=== PATIENT | male | born 1945 | race Caucasian/White ===

== ENCOUNTER → 2016-10-03 11:35 | Day surgery (SDC) | payer MEDICARE, BC ==
[~2016-10-03 11:35] MED LIST: Acetaminophen TAB* 325 MG PO PRN; Buffered Lidocaine 1% SYRIN* 3 ML/SYR SYRINGE INTRADERM ONE; Bupivacaine 0.25% EPI 200,000* 30 ML SDV ONE; DiMENhydriNATE IV* 50 MG/ML VIAL IV PUSH PRN; Famotidine IV* 10 MG/ML 2 ML (20 mg) ONE; HYDROcodone/ACETAMIN 5-325 MG* 1 TAB PO PRN; KETAMINE HCL* 50 MG/ML 10 ML VIAL ONE; Ketorolac INJ* 30 MG/ML 1 ML VIAL ONE; Lidocain 1% EPI 1:100,000 * 30 ML MDV ONE; Lidocaine 2% PF* 5 ML VIAL ONE; Midazolam* 1 MG/ML 2 ML VIAL (2 MG) ONE; PROCHLORPERAZINE INJ 5 MG/ML 2 ML VIAL IV PRN; Propofol* 10 MG/ML 20 ML BTL IV PUSH ONE; ceFAZolin 2 GM PREMIX(*) 2 GM/50 ML BAG IVPB ONE; diPHENhydraMINE IV* 50 MG/ML 1 ml VIAL (BENADRYL) ONE; fentaNYL* 50 MCG/ML 2 ML VIAL (100 MCG VIAL) ONE; fentaNYL* 50 MCG/ML 5 ML VIAL (250 MCG VIAL) ONE
[2016-10-03 16:54] VITALS: BP 126/85
== END | disposition home or self-care (01) ==
LOC: OR 11:35
PROVIDERS: ATTEND Plastic Surgery
DX: D17.0 Benign lipomatous neoplasm of skin and subcutaneous tissue of head, face and neck (principal); N40.0 Benign prostatic hyperplasia without lower urinary tract symptoms
CPT/HCPCS: 88304; J0690; J1200; J1885; J2250; J2704; J3010

== ENCOUNTER 2017-03-13 22:25 | Emergency (ER) | payer MEDICARE, BC ==
[2017-03-13 22:37] VITALS: BP 149/96
[2017-03-13 23:51] LABS: Hematocrit 41 % (42-52); Hemoglobin 14.1 g/dl (14.0-18.0); Mean Corpuscular HGB Conc 34 g/dl (31-36); Mean Corpuscular Hemoglobin 32 pg (27-31); Mean Corpuscular Volume 93 fL (80-94); Mean Platelet Volume 9 um3 (7.4-10.4); Red Blood Count 4.43 10^6/ul (4.0-5.4); Red Cell Distribution Width 14 % (10.5-15); White Blood Count 6.8 10^3/ul (3.5-10.8)
--- NOTE | 2017-03-13 23:55 | ED ---
Valencia Benedict Thomas, scribed for Nitin Bettencourt MD on 03/13/17 at 2336 . Skin Complaint - HPI Summary HPI Summary: The pt is a 71 y/o M with a Hx of MRSA presenting to the ED c/o cellulitis to his RLE that began a week ago. The pt also complains of pain associated with this cellulitis rated 2/10. The patient was seen at a hospital in [facility] two days ago, where he was prescribed Keflex. He presents to the ED because the cellulitis appears to be growing in size. He denies fever and chills. - History of Current Complaint Chief Complaint: EDRashSkinAbscess Time Seen by Provider: 03/13/17 23:23 Stated Complaint: RASH/BLISTERS/SWOLLEN RT LEG Hx Obtained From: Patient Onset/Duration: Started Weeks Ago - 1, Still Present, Worse Since - progressively Timing: Constant Current Severity: Mild Pain Intensity: 2 Pain Scale Used: 0-10 Numeric Skin Location: Leg - R Aggravating Symptom(s): Nothing Alleviating Symptom(s): Nothing Associated Signs & Symptoms: Negative Related History: Other: - Hx of MRSA - Allergy/Home Medications Allergies/Adverse Reactions: Allergies Allergy/AdvReac Type Severity Reaction Status Date / Time No Known Allergies Allergy Verified 03/13/17 22:33 PMH/Surg Hx/FS Hx/Imm Hx Previously Healthy: No History: Reports: Hx Kidney Stones, Other Problems/Disorders - ENLARGED PROSTATE Musculoskeletal History: Reports: Hx Arthritis - KNEES, SHOULDERS Sensory History: Reports: Hx Contacts or Glasses - GLASSES Opthamlomology History: Reports: Hx Contacts or Glasses - GLASSES - Surgical History Surgery Procedure, Year, and Place: APPENDECTOMY, 1958 - [place]. BONE FROM HIP PLACED IN WRIST , 1962 - [place]. INGUINAL HERNIA REPAIR, 1984 - [facility]. RIGHT CARPAL TUNNEL RELEASE, 2006 - [facility]. [facility] PROSTATE BIOPSY, 2011 - [facility]. RIGHT SHOULDER REPLACEMENT, MAY 2014 - [place] Hx Anesthesia Reactions: No Infectious Disease History: Yes Infectious Disease History: Denies: Traveled Outside the [place] in Last 30 Days - Family History Known Family History: Negative: Diabetes - Social History Alcohol Use: Rare Substance Use Type: Reports: None Smoking Status (MU): Never Smoked Tobacco Review of Systems Negative: Fever, Chills Positive: Other - POS: cellulitis to RLE, onset a week ago, Hx of MRSA All Other Systems Reviewed And Are Negative: Yes Physical Exam Triage Information Reviewed: Yes Vital Signs On Initial Exam: Initial Vitals Temp Pulse Resp BP Pulse Ox 99.3 F 59 16 149/96 98 03/13/17 22:35 03/13/17 22:35 03/13/17 22:35 03/13/17 22:35 03/13/17 22:35 Vital Signs Reviewed: Yes Appearance: Positive: Well-Appearing, No Pain Distress Skin: Positive: Warm, Other - 4x4cm area upper thigh with erythema, induratuion with few central blisters ENT: Positive: Hearing grossly normal Neck: Positive: Supple Respiratory/Lung Sounds: Positive: Breath Sounds Present Neurological: Positive: Alert, Oriented to Person Place, Time Psychiatric: Positive: Affect/Mood Appropriate Diagnostics - Vital Signs Vital Signs Temp Pulse Resp BP Pulse Ox 03/13/17 22:35 99.3 F 59 16 149/96 98 - Laboratory Result Diagrams: 03/13/17 23:45 03/13/17 23:45 Lab Statement: Any lab studies that have been ordered have been reviewed, and results considered in the medical decision making process. Course/Dx - Course Assessment/Plan: The pt is a 71 y/o M with a Hx of MRSA presenting to the ED c/ o cellulitis to his RLE that began a week ago. The pt also complains of pain associated with this cellulitis rated 2/10. The patient was seen at a hospital in [facility] two days ago, where he was prescribed Keflex. He presents to the ED because the cellulitis appears to be growing in size. He denies fever and chills. In the ED course the paitent was given IV Doxycycline. Blood work shows Hct 41, Glucose 119, total protein 5.7, globulin 1.8. Patient is diagnosed with cellulitis. Patient will be discharged home with follow up by PCP. He was prescribed Doxycycline PO. Patient is agreeable to this plan. - Diagnoses Provider Diagnoses: Cellulitis Discharge - Discharge Plan Condition: Stable Disposition: HOME Prescriptions: DOXYcycline CAP(*) [DOXYcycline 100MG CAP(*)] 100 mg PO BID #[id number] cap Patient Education Materials: Cellulitis (ED) Referrals: Lew Ortiz MD [Primary Care Provider] - The documentation as recorded by the Valencia sousa Thomas accurately reflects the service I personally performed and the decisions made by me, Nitin Bettencourt MD.
[2017-03-14 00:50] LABS: Albumin 3.9 g/dL (3.2-5.2); Calcium 8.9 mg/dL (8.6-10.3); EGFR African American 116.5 (>60); EGFR Non-African American 90.6 (>60); Globulin 1.8 g/dL (2-4); Potassium 4.2 mmol/L (3.5-5.0); Total Bilirubin 0.5 mg/dL (0.2-1.0); Total Protein 5.7 g/dL (6.4-8.9)
[2017-03-14] MEDS ORDERED: DOXYcycline IV* 100 MG in NS 0.9% 250 ML* 250 ML IVPB ONE (01:18)
== END 2017-03-14 04:39 | disposition home or self-care (01) ==
LOC: ED 22:25
DX: L03.90 Cellulitis, unspecified (principal); Z87.442 Personal history of urinary calculi; Z86.14 Personal history of Methicillin resistant Staphylococcus aureus infection
CPT/HCPCS: 36415; 80053; 85025; 96365; 99282